=== PATIENT | male | born 1980 | race Caucasian/White ===

== ENCOUNTER 2016-07-22 16:00 | Emergency (ER) | payer OTHER ==
[2016-07-22] MEDS ORDERED: KETOROLAC TROMETHAMINE 60 MG/2 ML VIAL IM ONE (16:48)
[2016-07-22] MEDS ORDERED: METHOCARBAMOL 500 MG TABLET PO ONE (16:49)
[2016-07-22 16:50] VITALS: BP 131/73; PULSE 89; TEMP 97.9; BMI 29.7
[2016-07-22] MEDS ORDERED: KETOROLAC TROMETHAMINE 60 MG/2 ML VIAL ONE (17:09)
[2016-07-22] MEDS ORDERED: METHOCARBAMOL 500 MG TABLET ONE (17:09)
--- NOTE | 2016-07-22 17:55 | PDOC ---
History of Present Illness - General Chief Complaint: Chronic pain Stated Complaint: LOWER BACK PAIN Time Seen by Provider: 07/22/16 16:36 History Source: Patient Exam Limitations: No Limitations - History of Present Illness Initial Comments: 07/22/16 17:49 CC reoccurring lower back pain, x 3 days now; no new trauma Timing/Duration: getting worse Severity: moderate Associated Symptoms: denies: chest pain, cough, diaphoresis, fever/chills, malaise Past History - Past Medical History Allergies/Adverse Reactions: Allergies Allergy/AdvReac Type Severity Reaction Status Date / Time No Known Allergies Allergy Verified 07/22/16 16:45 Home Medications: Ambulatory Orders Methocarbamol [Robaxin -] 750 mg PO BID #10 tablet 07/22/16 Naproxen [Naprosyn -] 500 mg PO BID #28 tablet 07/22/16 Other medical history: chronic back pain - Psycho/Social/Smoking Cessation Hx Anxiety: No Suicidal Ideation: No Smoking History: Never smoked Hx Alcohol Use: No Substance Use Type: None Review of Systems - Review of Systems Constitutional: No: Symptoms Reported, Chills, Malaise HEENTM: No: Symptoms Reported Respiratory: No: Symptoms reported, Cough Cardiac (ROS): No: Symptoms Reported ABD/GI: No: Symptoms Reported : No: Symptoms Reported Musculoskeletal: Yes: Back Pain, Muscle Pain. No: Symptoms Reported, Neck Pain Integumentary: No: Symptoms Reported, Bruising Neurological: No: Symptoms reported, Headache, Numbness, Paresthesia, Tingling, Weakness, Unsteady Gait, Ataxia, Dizziness *Physical Exam - Vital Signs Last Vital Signs Temp Pulse Resp BP Pulse Ox 97.9 F 89 18 131/73 98 07/22/16 16:45 07/22/16 16:45 07/22/16 16:45 07/22/16 16:45 07/22/16 16:45 - Physical Exam General Appearance: Yes: Appropriately Dressed. No: Apparent Distress HEENT: positive: TMs Normal, Pharynx Normal Neck: positive: Supple. negative: Tender, Rigid, Lymphadenopathy (R), Lymphadenopathy (L), Tender lateral, Tender midline Respiratory/Chest: positive: Lungs Clear, Normal Breath Sounds. negative: Chest Tender, Accessory Muscle Use Cardiovascular: positive: Regular Rhythm, Regular Rate. negative: Murmur Gastrointestinal/Abdominal: positive: Normal Bowel Sounds, Soft. negative: Tender, Flat, Organomegaly, Tenderness Rectal Exam: positive: deferred Musculoskeletal: positive: Other (tender to area of L4-L5 perispinal) Neurologic: positive: Normal Mood/Affect, Normal Response. negative: Motor Strength 5/5, Numbness, Sensory Deficit, Babinski Deep Tendon Reflexes: Ankle (L): 2+, Ankle (R): 2+, Knee (L): 2+, Knee (R): 2+ ED Treatment Course - Medications Given in the ED: ED Medications Discontinued Medications Generic Name Dose Route Start Last Admin Trade Name Freq PRN Reason Stop Dose Admin Ketorolac Tromethamine 60 mg 07/22/16 16:48 07/22/16 17:13 Toradol Injection - IM 07/22/16 16:49 60 mg ONCE ONE Administration Methocarbamol 1,000 mg 07/22/16 16:49 07/22/16 17:14 Robaxin - PO 07/22/16 16:50 1,000 mg ONCE ONE Administration Medical Decision Making - Medical Decision Making 07/22/16 17:52 Feeling much better post toradol and robaxin from [facility] *DC/Admit/Observation/Transfer Diagnosis at time of Disposition: Chronic lower back pain Qualifiers: Back pain laterality: unspecified Sciatica presence: without sciatica Qualified Code(s): M54.5 - Low back pain; G89.29 - Other chronic pain - Discharge Dispostion Disposition: HOME Condition at time of disposition: Stable Admit: No - Referrals Referrals: STAFF,NOT ON [Primary Care Provider] - Henry Frederick MD [Staff Physician] - - Patient Instructions Additional Instructions: please follow up with local MD if no better in 1 week - Post Discharge Activity Work/School Note: Back to Work
== END 2016-07-22 17:57 | disposition home or self-care (01) ==
LOC: JERFT 16:00 → JER 16:00 → JERFT 17:57
PROC: 3E0233Z Introduction of Anti-inflammatory into Muscle, Percutaneous Approach (ICD-10-PCS; principal; 2016-07-22)
DX: M54.5 Low back pain (principal); G89.29 Other chronic pain
CPT/HCPCS: 96372; 99281-25

== ENCOUNTER 2018-03-08 10:27 | Emergency (ER) | payer SELFPAY ==
[2018-03-08 10:42] VITALS: BP 135/82; PULSE 85; TEMP 98.5; BMI 30.3
[2018-03-08] MEDS ORDERED: KETOROLAC TROMETHAMINE 60 MG/2 ML VIAL IM ONE (10:56)
[2018-03-08] MEDS ORDERED: KETOROLAC TROMETHAMINE 60 MG/2 ML VIAL ONE (10:58)
--- NOTE | 2018-03-08 11:03 | PDOC ---
History of Present Illness - General Chief Complaint: Injury Stated Complaint: INJURY Time Seen by Provider: 03/08/18 10:51 History Source: Patient Exam Limitations: No Limitations - History of Present Illness Initial Comments: 03/08/18 11:00 37-year-old male status post right shoulder injury. Patient states was playing with his dog when it jumped up causing him to hyperextend his right arm causing him discomfort at the shoulder joint. Patient denies presented to the affected area but states unable to perform certain movement secondary to pain denies any paresthesia or radiation of pain. Occurred: reports: just prior to arrival Severity: reports: mild Pain Location: reports: upper extremity (right arm) Method of Injury: Yes: unknown Modifying Factors: improves with: None Associated Symptoms (Fall): denies symptoms Past History - Travel Traveled outside of the country in the last 30 days: No - Past Medical History Allergies/Adverse Reactions: Allergies Allergy/AdvReac Type Severity Reaction Status Date / Time No Known Allergies Allergy Verified 07/22/16 16:45 Home Medications: Ambulatory Orders NK [No Known Home Medication] 03/08/18 COPD: No DVT: No - Suicide/Smoking/Psychosocial Hx Smoking History: Never smoked Hx Alcohol Use: No Drug/Substance Use Hx: No Substance Use Type: None Patient Lives Alone: No Lives with/in: spouse/SO Review of Systems - Review of Systems Able to Perform ROS?: Yes Constitutional: No: Symptoms Reported Musculoskeletal: Yes: Joint Pain (Right shoulder) Integumentary: Yes: Symptoms Reported Neurological: No: Numbness, Tingling, Weakness Hematologic/Lymphatic: No: Symptoms Reported *Physical Exam - Vital Signs Last Vital Signs Temp Pulse Resp BP Pulse Ox 98.5 F 85 16 135/82 97 03/08/18 10:39 03/08/18 10:39 03/08/18 10:39 03/08/18 10:39 03/08/18 10:39 - Physical Exam General Appearance: Yes: Nourished, Appropriately Dressed. No: Apparent Distress Extremity: positive: Normal Capillary Refill, Normal Inspection. negative: Normal Range of Motion (unable to perform straight arm front raise/ lateral raise secondary to discomfort) Integumentary: positive: Normal Color, Warm, Moist. negative: Swelling, Ecchymosis Neurologic: positive: Motor Strength 5/5 (right shoulder shrug) Medical Decision Making - Medical Decision Making 03/08/18 11:01 Patient with right shoulder pain. Patient with likely rotator cuff injury. Patient ordered for Toradol given a sling and recommended supportive care and Fox actions along with orthopedic referral if symptoms continue greater than 7 days. *DC/Admit/Observation/Transfer Diagnosis at time of Disposition: Strain of rotator cuff - Discharge Dispostion Disposition: HOME Condition at time of disposition: Good - Referrals Referrals: Raz Johnson MD [Staff Physician] - - Patient Instructions Printed Discharge Instructions: DI for Rotator Cuff Injury Additional Instructions: Please use sling during the day but remove at night. Please take Motrin 600 mg every 8 hours for discomfort. If symptoms continue greater than 5-7 days consider following up with orthopedist as given here in the ER today. - Post Discharge Activity
== END 2018-03-08 11:21 | disposition home or self-care (01) ==
LOC: JERFT 10:27
PROC: 3E0233Z Introduction of Anti-inflammatory into Muscle, Percutaneous Approach (ICD-10-PCS; principal; 2018-03-08)
DX: S46.011A Strain of muscle(s) and tendon(s) of the rotator cuff of right shoulder, initial encounter (principal); X50.0XXA Overexertion from strenuous movement or load, initial encounter; Y93.K9 Activity, other involving animal care; Y92.038 Other place in apartment as the place of occurrence of the external cause; Y99.8 Other external cause status
CPT/HCPCS: 99281-25